=== PATIENT | female | born 1965 | race Caucasian/White ===

== ENCOUNTER → 2016-03-29 16:55 | Outpatient (CLI) | payer MEDICARE | END | disposition home or self-care (01) | LOC: D.MAMMO 14:30 | DX: Z12.31 Encounter for screening mammogram for malignant neoplasm of breast (principal) ==

== ENCOUNTER → 2017-02-09 13:17 | Outpatient (CLI) | payer MEDICARE | END | disposition home or self-care (01) | LOC: D.MRI 13:17 | DX: M25.551 Pain in right hip (principal) ==

== ENCOUNTER → 2017-02-10 14:57 | Outpatient (CLI) | payer MEDICARE | END | disposition home or self-care (01) | LOC: D.MRI 14:57 | DX: M25.551 Pain in right hip (principal) ==

== ENCOUNTER → 2017-10-03 18:59 | Outpatient (CLI) | payer MEDICARE | END | disposition home or self-care (01) | LOC: D.MAMMO 16:00 | DX: Z12.31 Encounter for screening mammogram for malignant neoplasm of breast (principal) ==

== ENCOUNTER 2019-09-01 20:23 | Observation (INO) | payer MEDICARE ==
[~2019-09-01] VITALS: Ht 170.2 cm; Wt 86.4 kg
[2019-09-01] MEDS ORDERED: HYDROCODONE (20:31)
[2019-09-01] MEDS ORDERED: [UNRECOGNIZED DRUG - OTHER] (20:32)
[2019-09-01] MEDS ORDERED: OMEPRAZOLE20 M1 (20:32)
[2019-09-01] MEDS ORDERED: ZOCOR40 MG PO (20:32)
[2019-09-01] MEDS ORDERED: RISPERDAL1 MG (20:32)
[2019-09-01] MEDS ORDERED: KLONOPIN (20:33)
[2019-09-01] MEDS ORDERED: VENTOLIN HFA [SP8 GM (20:33)
[2019-09-01] MEDS ORDERED: PREDNISONE20 MG PO (20:35)
[2019-09-01] MEDS ORDERED: [UNRECOGNIZED DRUG - OTHER] (20:36)
[2019-09-01] MEDS ORDERED: DOXYCYCLINE HY100 M2 PO (20:36)
[2019-09-01 21:28] LABS: BASOPHILS 0 % (0-2); EOSINOPHILS 0 % (0-7); HEMATOCRIT 39.7 % (36.0-48.0); HEMOGLOBIN 12.8 g/dL (12-16); IMMATURE GRANULOCYTES 0.3 % (0-5); LYMPHOCYTES 9.9 % (15-50); MCH 32.6 pg (26.0-34.0); MCHC 32.2 g/dL (31.0-37.0); MEAN PLATELET VOLUME 10.7 fL (7.4-10.4); NEUTROPHILS 83.8 % (40-80); PLATELET COUNT 193 10x3/uL (130-400); RBC 3.93 10x6/uL (4.00-5.40); RDW 13.5 % (11.5-14.5); WBC 7.8 10x3/uL (4.8-10.8)
[2019-09-01 21:36] LABS: INR 0.93 (0.85-1.17); PROTIME 12.5 SECONDS (11.6-15.0)
[2019-09-01 21:38] LABS: CALC OSMOLALITY 281 mosm/kg (275-300); CALCIUM 8.9 mg/dL (8.5-10.1); CARBON DIOXIDE 29.9 mmol/L (21.0-32.0); CHLORIDE - SERUM 106 mmol/L (98-107); CREATININE - SERUM 0.9 mg/dL (0.6-1.3); D-DIMER-QUANTITATIVE 0.29 ug/mLFEU (0.20-0.54); GLUCOSE 129 mg/dL (74-106); POTASSIUM - SERUM 4.2 mmol/L (3.5-5.1); SODIUM 141 mmol/L (136-145); UREA NITROGEN 11 mg/dL (7-18); eGFR NON AFRICAN AMERICAN 70 mL/min (90-120)
[2019-09-01 21:53] LABS: ALBUMIN 3.6 g/dL (3.4-5.0); ALKALINE PHOSPHATASE 88 U/L (30-120); ALT (SGPT) 23 U/L (10-68); BILIRUBIN - TOTAL 0.31 mg/dL (0.2-1.3); C-REACTIVE PROTEIN 0.4 mg/dL (0.0-0.9); CREATINE KINASE 131 UL (21-215); LIPASE 62 U/L (73-393); PRO BNP 256 pg/mL (0-125); PROTEIN - SERUM 6.4 g/dL (6.4-8.2); THYROID STIMULATING HORMONE 0.91 uIU/mL (0.36-3.74)
[2019-09-01 21:54] LABS: TROPONIN-I < 0.017 ng/mL (0.000-0.060)
--- NOTE | 2019-09-02 | NUR ---
PT TAKEN TO HER ROOM SEE DISPO.
--- NOTE | 2019-09-02 00:35 | NUR ---
ADMITED WITH [employer] PRECAUTIONS BED LOW AND LOCKED PT WILL USE PHONE TO CONTACT DESK
[2019-09-02 00:39] VITALS: BP 134/78
[2019-09-02] MEDS ORDERED: HYDROCODON-ACE1 EA10 PO (01:11)
[2019-09-02 02:20] VITALS: BP 134/78; Ht 170.2 cm; Wt 86.4 kg
--- NOTE | 2019-09-02 06:47 | NUR ---
ADMISSION ASSESSMENT COMPLETED BY RN.
--- NOTE | 2019-09-02 08:27 | NUR ---
GAVE NORCO FOR PAIN LEVEL OF 5/10. ALSO HUNG NEW BAG OF IV FLUIDS. PT A/O X4, RESP EVEN AND NONALABORED ON 3L. MONITOR SHOWING SR WITH RATE OF 94. PT ON ISOLATION FOR POSSIBLE COVID 19. PT DENIES ANY OTHER NEEDS AT THIS TIME CALL LIGHT IN REACH, NAD NOTED, WILL CONTINUE TO MONITOR.
[2019-09-02 08:28] VITALS: BP 136/84
[2019-09-02 08:31] LABS: BASOPHILS 0.2 % (0-2); EOSINOPHILS 0 % (0-7); HEMATOCRIT 42.4 % (36.0-48.0); HEMOGLOBIN 13.4 g/dL (12-16); IMMATURE GRANULOCYTES 0.3 % (0-5); LYMPHOCYTES 12.3 % (15-50); MCH 32.2 pg (26.0-34.0); MCHC 31.6 g/dL (31.0-37.0); MCV 101.9 fL (80.0-100.0); MEAN PLATELET VOLUME 11.1 fL (7.4-10.4); NEUTROPHILS 85.2 % (40-80); PLATELET COUNT 217 10x3/uL (130-400); RBC 4.16 10x6/uL (4.00-5.40); RDW 13.6 % (11.5-14.5); WBC 5.9 10x3/uL (4.8-10.8)
[2019-09-02 08:41] LABS: ALBUMIN 3.7 g/dL (3.4-5.0); ANION GAP 10.8 mmol/L (8-16); BILIRUBIN - TOTAL 0.32 mg/dL (0.2-1.3); CALCIUM 9.3 mg/dL (8.5-10.1); CARBON DIOXIDE 28.3 mmol/L (21.0-32.0); CREATININE - SERUM 0.9 mg/dL (0.6-1.3); POTASSIUM - SERUM 4.1 mmol/L (3.5-5.1); PROTEIN - SERUM 6.8 g/dL (6.4-8.2)
--- NOTE | 2019-09-02 09:10 | NUR ---
NOTIFIED NAA RAYMOND APN THAT PT IS REQUESTING SOMETHING FOR HER COUGH.
[2019-09-02 11:14] VITALS: BP 129/79
--- NOTE | 2019-09-02 15:19 | NUR ---
CHECKED ON PT AND ASKED IF SHE NEEDED ANYTHING. PT DENIES ANY NEEDS AT THIS TIME.
--- NOTE | 2019-09-02 15:59 | NUR ---
NORCO GIVEN FOR PAIN LEVEL OF 8/10. PT NEGATIVE FOR COVID 19, NOTIFIED NAA RAYMOND BLENDING TANK TENDER AND PT. PT DENIES ANY OTHER NEEDS AT THIS TIME. CALL LIGHT IN REACH, NAD NOTED, WILL CONTINUE TO MONITOR.
--- NOTE | 2019-09-02 18:22 | NUR ---
EXPLAINED TO PT IN FULL DETAILED ABOUT ORDERS FOR DISCHARGE AND WHEN SHE WILL BE DISCHARGE AND DIAGONOSIS FOR HOSPITAL STAY. [facility] WILL CONTACT HER FOR F/U APPT.
--- NOTE | 2019-09-02 19:16 | NUR ---
PROVIDED VERBAL AND WRITTEN DISCHARGE TEACHING TO PT WHO VERBALIZED UNDERSTANDING REGARDING TEACHING. D/C LT FA IV WITH CATHETER TIP INTACT. HEAT MONITOR REMOVED AND TAKEN TO NURSE SPECIALIST. PT WAITING ON RIDE, WHO WILL BE HERE IN 20MIN. PT TO NOTIFY NURSE OR PERCUSSION INSTRUMENT REPAIRER WHEN READY FOR WHEELCHAIR.
== END 2019-09-02 20:00 | disposition home or self-care (01) ==
LOC: D.ER 20:23 → OBSVTIME 23:36 → D.M2 23:36
PROVIDERS: Family Medicine; ADMIT Family Medicine; ATTEND Family Medicine
DX: J20.9 Acute bronchitis, unspecified (principal); J44.9 Chronic obstructive pulmonary disease, unspecified; F17.200 Nicotine dependence, unspecified, uncomplicated; F31.9 Bipolar disorder, unspecified; F41.8 Other specified anxiety disorders; G89.29 Other chronic pain; D75.89 Other specified diseases of blood and blood-forming organs; J98.11 Atelectasis